=== PATIENT | female | born 1970 | race Caucasian/White ===

== ENCOUNTER 2021-12-01 02:39 | Emergency (ER) | payer MEDICAID ==
[2021-12-01] MEDS ORDERED: Lidocaine 1% 5 ML VIAL INJECT ONE (02:59)
[2021-12-01] MEDS ORDERED: Diphtheria,Pertussis(Acell),Tetanus Vaccine 0.5 ML Syringe IM ONE (02:59)
[2021-12-01] MEDS ORDERED: Bacitracin Oint 1 GM U/D Packet TOP ONE (03:03)
== END 2021-12-01 03:24 | disposition home or self-care (01) ==
LOC: JP.ED 02:39
DX: S61.212A Laceration without foreign body of right middle finger without damage to nail, initial encounter (principal); Z23 Encounter for immunization; Z79.01 Long term (current) use of anticoagulants; W26.8XXA Contact with other sharp object(s), not elsewhere classified, initial encounter
CPT/HCPCS: 12001; 12002; 90471; 90715; 99281; 99282-25